=== PATIENT | male | born 1970 | race African-American/Black ===

== ENCOUNTER 2021-02-03 21:58 | Emergency (ER) | payer OTHER ==
[~2021-02-03] VITALS: Ht 195.6 cm; Wt 137.0 kg
[2021-02-03] MEDS ORDERED: SODIUM CHLORIDE 0.9% 1,000 ML IV ONE (23:30)
[2021-02-03 23:40] LABS: HEMATOCRIT. 36.7 % (42.0-52.0); HEMOGLOBIN. 12.8 g/dL (14.0-18.0); MEAN CORPUSCULAR HEMOGLOBIN 31.7 pg (28.0-32.0); MEAN CORPUSCULAR VOLUME 91.1 fL (80.0-94.0); MEAN PLATELET VOLUME 9.9 fl (7.4-10.4); PLATELET 320 x1000/uL (130-400); RED BLOOD CELL COUNT 4.03 mill/uL (4.7-6.1); RED CELL DISTRIBUTION WIDTH 14.2 % (11.6-14.6)
[2021-02-03 23:46] LABS: CHLORIDE 98 mEq/L (98-107)
[2021-02-04 01:13] VITALS: BP 108/63
[2021-02-04 01:28] LABS: PLATELET ESTIMATE NORMAL
== END 2021-02-04 01:15 | disposition left against medical advice (07) ==
LOC: ER 21:58
DX: N19 Unspecified kidney failure (principal); I21.4 Non-ST elevation (NSTEMI) myocardial infarction; R94.31 Abnormal electrocardiogram [ECG] [EKG]; I67.82 Cerebral ischemia; D72.829 Elevated white blood cell count, unspecified; Z71.89 Other specified counseling; Z88.0 Allergy status to penicillin
CPT/HCPCS: 36415; 70450; 71045; 80053; 84484; 85025; 93005; 99285; J7030